=== PATIENT | male | born 1975 | race African-American/Black ===

== ENCOUNTER 2017-11-21 06:01 | Emergency (ER) | payer SELFPAY ==
[2017-11-21] MEDS ORDERED: ONDANSETRON 4 MG/2 ML VIAL IVPUSH ONE (06:18)
[2017-11-21] MEDS ORDERED: SODIUM CHLORIDE 0.9% 1000 ML INFUS.BAG IV ONE (06:18)
[2017-11-21] MEDS ORDERED: ONDANSETRON *ODT* 4 MG TABLET SL ONE (06:23)
[2017-11-21] MEDS ORDERED: FAMOTIDINE 20 MG/50 ML IVPB 20 MG/50 ML MG IVPB ONE ×2 (06:24→06:45)
--- NOTE | 2017-11-21 06:24 | PDOC ---
History of Present Illness - General Chief Complaint: Nausea/Vomiting Stated Complaint: VOMITING Time Seen by Provider: 11/21/17 06:11 - History of Present Illness Initial Comments: 11/21/17 06:19 CHIEF COMPLAINT: vomiting HISTORY OF PRESENT ILLNESS: 42 yo M with hx of heroin and cocaine abuse (on methadone x 3 years) presents to ED with persistent vomiting x 3 hours. Patient reports he felt nauseous as he was leaving work and as soon as he got home he could not stop vomiting. Patient is actively vomiting in the ED. Patient reports pain to "middle" of abdomen. Patient reports last BM was "yesterday" and "kind of like" diarrhea. No recent travel or sick contacts. PAST MEDICAL HISTORY: Denies past medical history FAMILY HISTORY: Denies SOCIAL HISTORY: Heroin abuse, last use "like 1.5 days ago." Cocaine abuse, last use 3 days ago. Alcohol use "like three times a month." Denies tobacco use. SURGICAL HISTORY: Denies ALLERGIES: shellfish REVIEW OF SYSTEMS General/Constitutional: Denies fever or chills. Denies weakness. HEENT: Denies change in vision. Denies ear pain or discharge. Denies sore throat. Cardiovascular: Shortness of breath. Respiratory: Denies cough, wheezing, or hemoptysis. Gastrointestinal: Persistent vomiting x 3 hours. Loose stool yesterday. Denies rectal bleeding. Genitourinary: Denies dysuria, frequency, or change in urination. Musculoskeletal: Denies joint or muscle swelling or pain. Denies neck or back pain. Skin and breasts: Denies rash or easy bruising. Neurologic: Denies headache, vertigo, loss of consciousness, or loss of sensation. PHYSICAL EXAM General Appearance: Uncomfortable appearing, actively vomiting. No apparent distress. HEENT: EOMI, PERRLA, normal ENT inspection, normal voice, TMs normal, pharynx normal. No conjunctival pallor. No photophobia, scleral icterus. Respiratory/Chest: Lungs CTAB. No shortness of breath, chest tenderness, respiratory distress, accessory muscle use. No crackles, rales, rhonchi, stridor , wheezing, dullness Cardiovascular: RRR. S1, S2. Gastrointestinal/Abdominal: Epigastric tenderness. Negative story's sign, no RLQ tenderness. Protuberant abdomen. No organomegaly, pulsatile mass, guarding , hernia, hepatomegaly, splenomegaly. Musculoskeletal/Extremities: Normal inspection. FROM of all extremities, normal capillary refill. Pelvis Stable. No CVA tenderness. No tenderness to extremities, pedal edema, swelling, erythema or deformity. Integumentary: Appropriate color, dry, warm. 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 Fully oriented, alert. Appropriate mood/affect. Motor strength 5/5. No appreciable EOM palsy, facial droop or sensory deficit. Past History - Past Medical History Allergies/Adverse Reactions: Allergies Allergy/AdvReac Type Severity Reaction Status Date / Time shellfish derived Allergy Verified 11/21/17 06:37 Home Medications: Ambulatory Orders Methadone [Dolophine -] 10 mg PO DAILY 11/21/17 Ondansetron [Zofran Odt -] 4 mg SL TID #8 od.tablet 11/21/17 - Suicide/Smoking/Psychosocial Hx Smoking History: Never smoked Have you smoked in the past 12 months: No Information on smoking cessation initiated: No Hx Alcohol Use: No Drug/Substance Use Hx: No *Physical Exam - Vital Signs Last Vital Signs Temp Pulse Resp BP Pulse Ox 98.1 F 72 22 139/75 98 11/21/17 06:07 11/21/17 06:07 11/21/17 06:07 11/21/17 06:07 11/21/17 06:07 ED Treatment Course - LABORATORY CBC & Chemistry Diagram: 11/21/17 06:31 11/21/17 08:07 Medical Decision Making - Medical Decision Making 11/21/17 06:26 42 yo M with hx of heroin abuse (on methadone) presents to ED with persistent vomiting x 3 hours. -Zofran SL -CBC, CMP, lipase -IVF, Pepcid WBC 15.4 with left shift. Case discussed in detail with oncoming emergency provider including history, physical exam and ancillary studies. In brief, this patient is being seen in the ED for a chief complaint of: I have completed the initial assessment interview note and have ordered the following labs: CBC, CMP, lipase I have reviewed the following results: CBC Pending results: CMP, lipase Please call the PCP: N/A "he doesn't have insurance yet" Plan for disposition as follows: pending Oncoming NPA Eli has assumed care for the patient and will complete the evaluation and treatment. *DC/Admit/Observation/Transfer Diagnosis at time of Disposition: Gastroenteritis - Discharge Dispostion Disposition: HOME Condition at time of disposition: Improved - Prescriptions Prescriptions: Ondansetron [Zofran Odt -] 4 mg SL TID #8 od.tablet - Referrals - Patient Instructions Printed Discharge Instructions: DI for Viral Gastroenteritis -- Adult, Gastroenteritis Diet Additional Instructions: Discharge Instructions: -A prescription was sent to your pharmacy to zofran; please take as prescribed if needed -Buy over the counter zantac and take for abdominal discomfort -Follow bland diet today until feeling better -Return to the ER with any worsening or concerning symptoms. - Post Discharge Activity Forms/Work/School Notes: Back to Work
[2017-11-21 06:36] VITALS: TEMP 98.1; BMI 36.9
[2017-11-21 06:44] LABS: BASO % 0.6 % (0-2.0); EOS % 0.2 % (0-4.5); HEMATOCRIT 42.8 % (35.4-49); LYMPH % 10.4 % (8-40); MCH 28.5 pg (25.7-33.7); MCHC 32.8 g/dl (32.0-35.9); MEAN CELL VOLUME 86.9 fl (80-96); MEAN PLT VOLUME 8.9 fl (7.5-11.1); MONO % 4.8 % (3.8-10.2); PLATELET COUNT 285 K/MM3 (134-434); RBC 4.92 M/mm3 (4.00-5.60); RDW 13.8 % (11.9-15.9); WHITE BLOOD COUNT 15.4 K/mm3 (4.0-10.0)
--- NOTE | 2017-11-21 07:24 | PDOC ---
ED Treatment Course - LABORATORY CBC & Chemistry Diagram: 11/21/17 06:31 11/21/17 08:07 - ADDITIONAL ORDERS Additional order review: Laboratory Results 11/21/17 06:31 Sodium Cancelled Potassium Cancelled Chloride Cancelled Carbon Dioxide Cancelled Anion Gap Cancelled BUN Cancelled Creatinine Cancelled Creat Clearance w eGFR Cancelled Random Glucose Cancelled Calcium Cancelled Total Bilirubin Cancelled AST Cancelled ALT Cancelled Alkaline Phosphatase Cancelled Total Protein Cancelled Albumin Cancelled Lipase Cancelled 11/21/17 06:31 RBC 4.92 MCV 86.9 MCHC 32.8 RDW 13.8 MPV 8.9 Neutrophils % 84.0 H Lymphocytes % 10.4 Monocytes % 4.8 Eosinophils % 0.2 Basophils % 0.6 - Medications Given in the ED: ED Medications Discontinued Medications Generic Name Dose Route Start Last Admin Trade Name Freq PRN Reason Stop Dose Admin Famotidine/Sodium Chloride 20 mg in 50 mls @ 100 mls/hr 11/21/17 06:45 07:15 Pepcid 20 Mg Premixed Ivpb - IVPB 11/21/17 07:14 100 mls/hr ONCE ONE Administration Ondansetron HCl 8 mg 11/21/17 06:18 11/21/17 07:16 Zofran Injection IVPUSH 11/21/17 06:19 Not Given ONCE ONE Ondansetron HCl 8 mg 11/21/17 06:23 11/21/17 07:15 Zofran Odt - SL 11/21/17 06:24 8 mg ONCE ONE Administration Sodium Chloride 1,000 ml 11/21/17 06:18 11/21/17 07:15 Normal Saline - IV 11/21/17 06:19 1,000 ml ONCE ONE Administration Progress Note - Progress Note Progress Note: I have received report from JASSON Marina regarding this patient. Pt's initial chief complaint: vomiting Pt's work up completed prior to sign out: labs Pt treatment given from prior staff: IV fluids, zofran, pepcid Pt plan to be completed: awaiting CMP and lipase, reassess Dispo: Pending Medical Decision Making - Medical Decision Making A/P: 42 y/o male with hx of heroin and cocaine abuse (on methadone x 3 years) c /o vomiting x 3 hours. Patient was initially assessed and worked up by JASSON Marina. Plan is to wait for completion of labs and reassess with PO challenge. Labs ok. Slightly elevated liver enzymes. Abdominal exam - Mild epigastric TTP. Negative Goode's sign. Patient states he does feel better. Will discharge to home with rx for zofran and zantac. Suggested bland diet today Instructed the patient to return to the ER with any worsening or concerning symptoms The patient verbalize understanding of all instructions, has no further questions and is awaiting discharge. *DC/Admit/Observation/Transfer Diagnosis at time of Disposition: Gastroenteritis - Discharge Dispostion Disposition: HOME Condition at time of disposition: Improved - Referrals - Patient Instructions Printed Discharge Instructions: DI for Viral Gastroenteritis -- Adult, Gastroenteritis Diet Additional Instructions: Discharge Instructions: -A prescription was sent to your pharmacy to zofran; please take as prescribed if needed -Buy over the counter zantac and take for abdominal discomfort -Follow bland diet today until feeling better -Return to the ER with any worsening or concerning symptoms. - Post Discharge Activity Forms/Work/School Notes: Back to Work
[2017-11-21 08:45] LABS: ALBUMIN 3.6 g/dl (3.4-5.0); ALK PHOS 143 U/L (45-117); ANION GAP 7 (8-16); BILIRUBIN,TOTAL 0.4 mg/dL (0.2-1.0); BLOOD UREA NITROGEN 9 mg/dL (7-18); CALCIUM 8.6 mg/dL (8.5-10.1); CHLORIDE 105 mmol/L (98-107); CO2 28 mmol/L (21-32); CREATININE 0.7 mg/dL (0.7-1.3); GLUCOSE,RANDOM 123 mg/dL (74-106); LIPASE 88 U/L (73-393); POTASSIUM 4.1 mmol/L (3.5-5.1); SGOT/AST 41 U/L (15-37); SGPT/ALT 80 U/L (12-78); SODIUM 140 mmol/L (136-145); TOT PROT 7.7 g/dl (6.4-8.2)
[2017-11-21 09:52] VITALS: BP 133/78; PULSE 70
== END 2017-11-21 09:52 | disposition home or self-care (01) ==
LOC: JER 06:01
PROC: 3E033GC Introduction of Other Therapeutic Substance into Peripheral Vein, Percutaneous Approach (ICD-10-PCS; principal; 2017-11-21)
DX: K52.9 Noninfective gastroenteritis and colitis, unspecified (principal); F11.20 Opioid dependence, uncomplicated
CPT/HCPCS: 36415; 80053; 83690; 85025; 99282-25

== ENCOUNTER 2023-04-26 03:11 | Emergency (ER) | payer OTHER ==
[2023-04-26 03:22] VITALS: RESP 18; TEMP 98.1; BMI 31.0
[2023-04-26] MEDS ORDERED: ACETAMINOPHEN 1000 MG/100 ML BAG IVPB ONE (03:33)
[2023-04-26] MEDS ORDERED: FAMOTIDINE 20 MG/50 ML IVPB 20 MG/50 ML MG IVPB ONE ×2 (03:33→03:45)
[2023-04-26] MEDS ORDERED: ONDANSETRON 4 MG/2 ML VIAL IVPUSH ONE (03:33)
[2023-04-26] MEDS ORDERED: LACTATED RINGERS SOLUTION 1000 ML INFUS.BAG IV ONE (03:33)
[2023-04-26] MEDS ORDERED: ACETAMINOPHEN INJECTION 100 ML IVPB ONE (03:45)
[2023-04-26] MEDS ORDERED: ONDANSETRON 4 MG/2 ML VIAL ONE (03:45)
[2023-04-26 03:50] LABS: BASO % 0.9 % (0-2.0); EOS % 2.2 % (0-4.5); HEMATOCRIT 42.6 % (35.4-49); HEMOGLOBIN 14.3 GM/dL (11.7-16.9); LYMPH % 25.7 % (8-40); MCH 27.7 pg (25.7-33.7); MCHC 33.6 g/dl (32.0-35.9); MEAN CELL VOLUME 82.5 fl (80-96); MEAN PLT VOLUME 8.5 fl (7.5-11.1); MONO % 8.1 % (3.8-10.2); NEUT % 63.1 % (42.8-82.8); PLATELET COUNT 258 10^3/uL (134-434); RBC 5.16 M/mm3 (4.00-5.60); RDW 13.6 % (11.9-15.9); WHITE BLOOD COUNT 10.6 K/mm3 (4.0-10.0)
[2023-04-26 03:57] LABS: INR 1.02 (0.83-1.09); PROTHROMBIN TIME (PATIENT) 11.8 SEC (9.7-13.0)
[2023-04-26 03:59] LABS: ACTIVATED PTT 33.5 SECONDS (25.2-36.5)
[2023-04-26 04:09] LABS: POTASSIUM 3.6 mmol/L (3.5-5.1)
[2023-04-26 04:11] LABS: ALBUMIN 3.4 g/dl (3.4-5.0); BLOOD UREA NITROGEN 9.9 mg/dL (7-18); CALCIUM 9.4 mg/dL (8.5-10.1); MAGNESIUM 1.9 mg/dL (1.8-2.4)
[2023-04-26 04:14] LABS: CREATININE 0.7 mg/dL (0.55-1.3)
[2023-04-26 04:16] LABS: BILIRUBIN,TOTAL 0.4 mg/dL (0.2-1); TOT PROT 7.3 g/dl (6.4-8.2)
[2023-04-26] MEDS ORDERED: METOCLOPRAMIDE HCL INJECTION 10 MG/2 ML VIAL IVPUSH ONE (04:35)
[2023-04-26] MEDS ORDERED: METOCLOPRAMIDE HCL INJECTION 10 MG/2 ML VIAL ONE (04:44)
[2023-04-26 05:56] VITALS: BP 120/73; PULSE 75
== END 2023-04-26 06:29 | disposition home or self-care (01) ==
LOC: JER 03:11
PROC: 3E033GC Introduction of Other Therapeutic Substance into Peripheral Vein, Percutaneous Approach (ICD-10-PCS; principal; 2023-04-26)
PROC: 3E033NZ Introduction of Analgesics, Hypnotics, Sedatives into Peripheral Vein, Percutaneous Approach (ICD-10-PCS; 2023-04-26)
PROC: 3E033GC Introduction of Other Therapeutic Substance into Peripheral Vein, Percutaneous Approach (ICD-10-PCS; 2023-04-26)
PROC: 3E033GC Introduction of Other Therapeutic Substance into Peripheral Vein, Percutaneous Approach (ICD-10-PCS; 2023-04-26)
DX: R10.9 Unspecified abdominal pain (principal); R11.0 Nausea; R19.8 Other specified symptoms and signs involving the digestive system and abdomen; R53.1 Weakness; E86.0 Dehydration
CPT/HCPCS: 36415; 71045-TC-FY; 74177-TC; 80053; 82550; 83605; 83690; 83735; 84484; 85025; 85610; 85730; 86850; 86900; 86901; 93005; 93010; 99285-25; Q9967

== ENCOUNTER 2023-04-27 15:47 | Emergency (ER) | payer OTHER ==
[2023-04-27 15:53] VITALS: BP 145/82; PULSE 69; RESP 16; TEMP 98.7; BMI 32.5
[2023-04-27] MEDS ORDERED: FAMOTIDINE 20 MG/50 ML IVPB 20 MG/50 ML MG IVPB ONE ×2 (16:42→16:44)
[2023-04-27] MEDS ORDERED: MAG HYDROX/AL HYDROX/SIMETH 30 ML UNIT-DOSE CUP PO ONE (16:42)
[2023-04-27] MEDS ORDERED: ACETAMINOPHEN 1000 MG/100 ML BAG IVPB ONE (16:42)
[2023-04-27] MEDS ORDERED: ONDANSETRON 4 MG/2 ML VIAL IVPUSH ONE (16:42)
[2023-04-27] MEDS ORDERED: MAG HYDROX/AL HYDROX/SIMETH 30 ML UNIT-DOSE CUP ONE (16:44)
[2023-04-27] MEDS ORDERED: ONDANSETRON 4 MG/2 ML VIAL ONE ×2 (16:44→16:51)
[2023-04-27] MEDS ORDERED: ACETAMINOPHEN INJECTION 100 ML IVPB ONE (16:44)
[2023-04-27] MEDS ORDERED: LACTATED RINGERS SOLUTION 1,000 ML/1,000 ML INFUS.BAG IV SCH (16:45)
[2023-04-27 17:10] LABS: BASO % 0.6 % (0-2.0); HEMATOCRIT 40.8 % (35.4-49); HEMOGLOBIN 13.8 GM/dL (11.7-16.9); MCH 28.1 pg (25.7-33.7); MCHC 33.8 g/dl (32.0-35.9); MEAN CELL VOLUME 83.2 fl (80-96); MONO % 6.2 % (3.8-10.2); NEUT % 72.2 % (42.8-82.8); PLATELET COUNT 252 10^3/uL (134-434); RBC 4.91 M/mm3 (4.00-5.60); RDW 13.7 % (11.9-15.9); WHITE BLOOD COUNT 10.4 K/mm3 (4.0-10.0)
[2023-04-27 17:35] LABS: CALCIUM 9.3 mg/dL (8.5-10.1)
[2023-04-27 17:36] LABS: ALBUMIN 3.2 g/dl (3.4-5.0)
[2023-04-27 17:38] LABS: CREATININE 0.6 mg/dL (0.55-1.3)
[2023-04-27 17:40] LABS: BILIRUBIN,TOTAL 0.4 mg/dL (0.2-1); TOT PROT 6.9 g/dl (6.4-8.2)
== END 2023-04-27 18:54 | disposition home or self-care (01) ==
LOC: JER 15:47
PROC: 3E033GC Introduction of Other Therapeutic Substance into Peripheral Vein, Percutaneous Approach (ICD-10-PCS; principal; 2023-04-27)
PROC: 3E033NZ Introduction of Analgesics, Hypnotics, Sedatives into Peripheral Vein, Percutaneous Approach (ICD-10-PCS; 2023-04-27)
PROC: 3E033GC Introduction of Other Therapeutic Substance into Peripheral Vein, Percutaneous Approach (ICD-10-PCS; 2023-04-27)
DX: R10.84 Generalized abdominal pain (principal); R11.2 Nausea with vomiting, unspecified; R63.0 Anorexia; R68.83 Chills (without fever); R42 Dizziness and giddiness; Z20.822 Contact with and (suspected) exposure to COVID-19
CPT/HCPCS: 0241U-QW; 36415; 80053; 83690; 84484; 85025; 93005; 93010; 99284-25